=== PATIENT | female | born 2005 | race Caucasian/White ===

== ENCOUNTER 2024-02-23 18:04 | Emergency (ER) | payer BC ==
--- NOTE | 2024-02-23 18:41 | ED ---
General Adult HPI - General Source: patient, RN notes reviewed <Amber Disla - Last Filed: 02/23/24 18:39> - General Source: patient, RN notes reviewed, old records reviewed Mode of arrival: ambulatory Limitations: no limitations - History of Present Illness -: days(s) Location: left, upper extremity Radiation: extremity Severity scale (1-10): 6 Quality: stabbing, aching, dull, constant Consistency: constant Improves with: none Worsens with: none Associated Symptoms: denies other symptoms Treatments Prior to Arrival: none <Bo Norton - Last Filed: 03/07/24 22:28> - General Stated complaint: arm pit abbcess Time Seen by Provider: 02/23/24 18:20 - History of Present Illness Initial comments: Quick Note-this is a 18-year-old female presents emergency department chief complaint of a abscess to her left axilla over the past week. Patient was seen at urgent care yesterday where an abscess of the right axilla was incised and drained. The did not perform I&D of the left due to concern for involvement. Patient was sent home with Bactrim and Keflex. Patient states that the abscess is not improving since yesterday. Fevers. Endorses nausea, no vomiting. (Amber Disla) This is a 18-year-old female to the ER for evaluation of significant abscesses. Patient recently had I&D of right axillary abscess currently with left axillary abscess severe pain is simply worsened despite taking antibiotics no fevers (Bo Norton) - Related Data Previous Rx's Medication Instructions Recorded Sulfamethox-Tmp 800-160Mg [Bactrim 1 tab PO Q12HR #14 tab 02/23/24 DS 800-160 mg] Allergies Allergy/AdvReac Type Severity Reaction Status Date / Time No Known Allergies Allergy Verified 02/23/24 18:45 Review of Systems ROS Other: All systems not noted in ROS Statement are negative. <Amber Disla - Last Filed: 02/23/24 18:39> ROS Other: All systems not noted in ROS Statement are negative. <Bo Norton - Last Filed: 03/07/24 22:28> ROS Statement: Those systems with pertinent positive or pertinent negative responses have been documented in the HPI. General Exam <NaifSethAmber - Last Filed: 02/23/24 18:39> General appearance: alert, in no apparent distress Head exam: Present: atraumatic, normocephalic, normal inspection Eye exam: Present: normal appearance, PERRL, EOMI. Absent: scleral icterus, conjunctival injection, periorbital swelling ENT exam: Present: normal exam, mucous membranes moist Neck exam: Present: normal inspection. Absent: tenderness, meningismus, lymphadenopathy Respiratory exam: Present: normal lung sounds bilaterally. Absent: respiratory distress, wheezes, rales, rhonchi, stridor Cardiovascular Exam: Present: regular rate, normal rhythm, normal heart sounds. Absent: systolic murmur, diastolic murmur, rubs, gallop, clicks GI/Abdominal exam: Present: soft, normal bowel sounds. Absent: distended, tenderness, guarding, rebound, rigid Extremities exam: Present: normal inspection, full ROM, normal capillary refill. Absent: tenderness, pedal edema, joint swelling, calf tenderness Back exam: Present: normal inspection Neurological exam: Present: alert, oriented X3, CN II-XII intact Psychiatric exam: Present: normal affect, normal mood Skin exam: Present: warm, dry, intact, normal color. Absent: rash <Bo Norton - Last Filed: 03/07/24 22:28> - General Exam Comments Initial Comments: Visual Physical Exam Vital signs reviewed General: Well-appearing, nontoxic, no acute distress. Head: Normocephalic, atraumatic Eyes: PERRLA, EOMI ENT: Airway patent Chest: Nonlabored breathing Skin: No visual rash, normal skin tone Neuro: Alert and oriented 3 Musculoskeletal: No gross abnormalities (Amber Disla) Course <Bo Norton - Last Filed: 03/07/24 22:28> Vital Signs 02/23/24 02/23/24 18:42 20:17 Temperature 98.8 F 98 F Pulse Rate 93 91 Respiratory 18 18 Rate Blood Pressure 123/78 109/68 O2 Sat by Pulse 99 99 Oximetry - Reevaluation(s) Reevaluation #1: Medical records reviewed (Bo Norton) Reevaluation #2: Patient symptoms improved (Roskopp,Bo B) Reevaluation #3: Patient informed of results and questions answered (Bo Norton) Reevaluation #4: Was pt. sent in by a medical professional or institution ([facility], [facility] [employer], urgent care, hospital, or longterm...) When possible be specific @ -no Did you speak to anyone other than the patient for history (EMS, parent, family, police, friend...)? What history was obtained from this source @ -no Did you review nursing and triage notes (agree or disagree)? Why? @ -agree Are old charts reviewed (outside hosp., previous admission, EMS record, old EKG, old radiological studies, urgent care reports/EKG's, longterm records)? Report findings @ -yes Differential Diagnosis (chest pain, altered mental status, abdominal pain women, abdominal pain men, vaginal bleeding, weakness, fever, dyspnea, syncope, headache, dizziness, GI bleed, back pain, seizure, CVA, palpatations, mental health, musculoskeletal)? @ -prior EKG interpreted by me (3pts min.). @ -yes X-rays interpreted by me (1pt min.). @ -yes negative for acute disease CT interpreted by me (1pt min.). @ -no U/S interpreted by me (1pt. min.). @ -no What testing was considered but not performed or refused? (CT, X-rays, U/S, labs)? Why? @ -none What meds were considered but not given or refused? Why? @ -none Did you discuss the management of the patient with other professionals (professionals i.e. [facility], [facility] [employer], lab, RT, psych nurse, social media marketing specialist, paymaster of purses, teacher, special forces warrant officer, manager of case)? Give summary @ -no Was smoking cessation discussed for >3mins.? @ -no Was critical care preformed (if so, how long)? @ -no Were there social determinants of health that impacted care today? How? (Homelessness, low income, unemployed, alcoholism, drug addiction, transportation, low edu. Level, literacy, decrease access to med. care, [facility], rehab)? @ -none Was there de-escalation of care discussed even if they declined (Discuss DNR or withdrawal of care, Hospice)? DNR status @ -no What co-morbidities impacted this encounter? (DM, HTN, Smoking, COPD, CAD, Cancer, CVA, ARF, Chemo, Hep., AIDS, mental health diagnosis, sleep apnea, morbid obesity)? @ -none Was patient admitted / discharged? Hospital course, mention meds given and route, prescriptions, significant lab abnormalities, going to OR and other pertinent info. @ - Undiagnosed new problem with uncertain prognosis? @ -no Drug Therapy requiring intensive monitoring for toxicity (Heparin, Nitro, Insulin, Cardizem)? @ -no Were any procedures done? @ -no Diagnosis/symptom? @ - Acute, or Chronic, or Acute on Chronic? @ -Acute Uncomplicated (without systemic symptoms) or Complicated (systemic symptoms)? @ -Complicated Side effects of treatment? @ -no Exacerbation, Progression, or Severe Exacerbation? @ -exacerbation Poses a threat to life or bodily function? How? (Chest pain, [place], [place], pneumonia, PE, COPD, DKA, ARF, appy, cholecystitis, CVA, Diverticulitis, Homicidal, Suicidal, threat to staff... and all critical care pts) @ -yes (Bo Norton) Procedures - Incision & Drainage Consent Obtained: verbal consent Site: lower extremity (axiilla Left) Anesthetic Used: lidocaine 1%, with epi I&D Cleaning Method: Chloroprep Sterile Field Used?: Yes Scalpel Used: #11 Ultrasound used: No Needle Aspiration Performed?: No Irrigation Performed?: Yes I&D Drainage Obtained: Pus Loculation Noted: probing needed to break Insertion of drain: Yes Culture Obtained?: Yes Patient Tolerated Procedure: well <Bo Norton - Last Filed: 03/07/24 22:28> Medical Decision Making <Amber Disla - Last Filed: 02/23/24 18:39> <Bo Norton - Last Filed: 03/07/24 22:28> - Medical Decision Making I completed the quick note portion of this chart signed Amber Disla PA-C (Amber Disla) 18 female to the ED co bilateral axillary abscesses, IandD here in the ED and patients symptoms are improved and is OK for admission (Bo Norton) Disposition <Amber Disla - Last Filed: 02/23/24 18:39> Is patient prescribed a controlled substance at d/c from ED?: No Time of Disposition: 19:30 <Bo Norton - Last Filed: 03/07/24 22:28> Clinical Impression: Abscess of left axilla Disposition: HOME SELF-CARE Instructions (If sedation given, give patient instructions): Abscess Incision and Drainage (ED), Abscess (ED) Prescriptions: Sulfamethox-Tmp 800-160Mg [Bactrim DS 800-160 mg] 1 tab PO Q12HR #14 tab Referrals: None,Stated [Primary Care Provider] - 1-2 days
[2024-02-23 18:45] VITALS: RESP 18
[2024-02-23 20:18] VITALS: BP 109/68; PULSE 91; TEMP 98
== END 2024-02-23 20:20 | disposition home or self-care (01) ==
LOC: EC 18:04
DX: L02.412 Cutaneous abscess of left axilla (principal)
CPT/HCPCS: 10060; 99283